=== PATIENT | female | born 1970 | race Caucasian/White ===

== ENCOUNTER 2017-06-10 01:52 | Emergency (ER) | payer MEDICARE, MEDICAID ==
--- NOTE | 2017-06-10 02:23 | ERNOTE ---
Medical Problem HPI - General Chief Complaint: Diabetes Related Problem Time Seen by Provider: 06/10/17 02:21 Source: patient, family Exam Limitations: no limitations - History of Present History Narrative: Pt presents with low blood sugar at home Severity: moderate Modifying Factors - (Improves): Present: eating Review of Systems - Review of Systems Constitutional: Absent: recent illness EYE: Present: no symptoms reported ENT: Present: no symptoms reported Respiratory: Absent: shortness of breath Cardiology: Absent: chest pain Gastrointestinal/Abdominal: Absent: nausea, vomiting Genitourinary: Present: no symptoms reported Musculoskeletal: Present: no symptoms reported Skin: Present: no symptoms reported Neurological: Present: no symptoms reported Endocrine: Absent: excessive sweating, flushing Hematologic/Lymphatic: Present: no symptoms reported Psych: Present: no symptoms reported - Patient's Past Medical History Patient History - Medical: Anemia, Diabetes Type 1, Renal Disease, Other - blind Patient History - Cardiac/Respiratory: Coronary Heart Disease - Social History Have you smoked in the past 12 months: No Physical Exam - Physical Exam General Appearance: Present: wd/wn, alert, no apparent distress Head Exam: Present: normal inspection, no evidence of injury Eye Exam: Normal inspection: bilateral Ears, Nose, Throat: Present: normal ENT inspection Neck: Present: normal inspection, nontender Respiratory: Present: no respiratory distress, normal breath sounds, no accessory muscle use, lungs clear Cardiovascular/Chest: Present: regular rate, rhythm, no murmur, normal peripheral pulses Gastrointestinal/Abdominal: Present: normal bowel sounds, nontender, nondistended, soft Back Exam: Present: normal inspection, normal range of motion Extremity Exam: Present: normal inspection, normal range of motion Neurological Exam: Present: alert, normal mood/affect, no motor/sensory deficits Skin Exam: Present: normal color, warm/dry Lymphatic Exam: Present: no adenopathy ED Progress - Results and Orders Patient's Lab Results:: I have reviewed the patient's lab results. Results and Orders: Laboratory Tests 06/10/17 06/10/17 06/10/17 02:57 02:57 03:08 WBC 9.4 Hgb 9.2 L Hct 30.5 L Plt Count 326 Neutrophils % 75.5 H Sodium 140 Potassium 5.6 H Chloride 105 Carbon Dioxide 27.5 Anion Gap 13.1 BUN 44 H Creatinine 2.22 H Est GFR (Non-Af Amer) 25 L Random Glucose 215 H Calcium 9.2 Total Bilirubin 0.2 AST 31 ALT 39 Alkaline Phosphatase 49 L Total Protein 7.1 Albumin 2.8 L Urine Color Dark yellow Urine Appearance Cloudy Urine pH 6.0 Ur Specific [place] 1.020 Urine Protein Negative Urine Glucose (UA) Negative Urine Ketones Negative Urine Blood Negative Urine Nitrate Negative Urine Bilirubin Negative Urine Urobilinogen Normal Ur Leukocyte Esterase 75 H Urine RBC 0-5 Urine WBC 10-25 H Ur Epithelial Cells 0-5 Amorphous Sediment Few - 1+ Urine Bacteria 3+ H Urine Mucus Few - 1+ H Urine Culture Comments Culture to follow - Vital Signs Patient's Vital Signs:: I have reviewed the patient's vital signs. Vital Signs: Vital Signs 06/10/17 02:05 Temperature 36.0 C L Pulse Rate 85 Respiratory 14 Rate Blood Pressure 136/72 O2 Sat by Pulse 100 Oximetry - Progress/Reassessment Chief Complaint: Diabetes Related Problem Progress:: Improved Progress Note-Subjective: 06/10/17 04:37 discussed insulin use with pt and her POA ([id number]). Pt expressed understanding. Discussed hyperkalemia and suggested reducing losartan and rechecking potassium in 3-5 days. They express understanding Departure Clinical Impression: Hypoglycemia, Hyperkalemia - Departure Disposition: Home Follow Up Needed Condition: Good Instructions: Hyperkalemia, [id number], Potassium Content of Foods, Hypoglycemia, [id number] Additional Instructions: Cut your losartan in half and have your potassium rechecked in 3-5 days by your primary care provider. Monitor the insulin doses carefully
[2017-06-10 03:09] LABS: Hematocrit 30.5 % (37.0-47.0); Hemoglobin 9.2 gm/dL (12.5-16.0); Mean Cell Volume 91.9 fl (78-100); Mean Corpuscular Hemoglobin 27.7 pg (27-31); Mean Corpuscular Hgb Conc 30.2 g/dl (32-36); Mean Platelet Volume 9.4 fl (6.0-9.5); Neutrophil # 7.1 K/mm3 (1.3-6.0); Neutrophil % 75.5 % (42-75.0); Platelet Count 326 K/mm3 (150-450); Red Blood Count 3.32 M/mm3 (4.2-5.4); Red Cell Distribution Width 13.9 % (11.5-14.0); White Blood Count 9.4 K/mm3 (4.0-10.5)
[2017-06-10 03:14] LABS: Urine Bilirubin Negative (NEGATIVE); Urine Ketone Negative (NEGATIVE); Urine Nitrite Negative (NEGATIVE); Urine Protein Negative (NEGATIVE); Urine Urobilinogen Normal (NORMAL)
[2017-06-10 03:23] LABS: Urine Amorphous Sediment Few - 1+ (NONE-FEW); Urine Appearance Cloudy; Urine Bacteria 3+; Urine Blood Negative /ul (NEGATIVE); Urine Color Dark Yellow; Urine Mucus Few - 1+; Urine RBC 0-5 /hpf (0-5)
[2017-06-10 03:25] LABS: Albumin * 2.8 gm/dl (3.4-5.0); Anion Gap 13.1 mmol/L (6.8-13.8); BUN/Creatinine Ratio 19.8 (9.0-21.6); Bilirubin, Total 0.2 mg/dL (0.0-1.1); Ca. Corrected For Albumin 9.8 mg/dL (8.4-10.2); Calcium * 9.2 mg/dL (7.9-10.9); Carbon Dioxide 27.5 mmol/L (24-32.6); Potassium 5.6 mmol/L (3.4-4.6); Total Protein 7.1 gm/dL (6.2-8.2)
[2017-06-10 04:52] VITALS: BP 153/75
== END 2017-06-10 04:55 | disposition home or self-care (01) ==
LOC: ER 01:52
DX: E16.2 Hypoglycemia, unspecified (principal); E87.6 Hypokalemia